=== PATIENT | male | born 1935 | race Caucasian/White ===

== ENCOUNTER 2017-06-26 20:03 | Inpatient (IN) | payer MEDICARE, MEDICAID ==
[~2017-06-26] VITALS: Ht 160 cm; Wt 105.7 kg
[~2017-06-26 20:03] MED LIST: AMLO5TAB2 PO; ENOX40DI9 SQ; LISI-603 PO
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
[2017-06-26] MEDS ORDERED: HALO2TAB PO (20:20)
[2017-06-26] MEDS ORDERED: ASPI-605 PO (20:20)
[2017-06-26] MEDS ORDERED: MAGN400O6 PO (20:20)
[2017-06-26] MEDS ORDERED: CHOL500062 PO (20:20)
[2017-06-26] MEDS ORDERED: LEVO50TA8 PO (20:20)
[2017-06-26] MEDS ORDERED: DOCU100C36 PO (20:20)
[2017-06-26] MEDS ORDERED: ACET-2154 PO (20:20)
[2017-06-26] MEDS ORDERED: FURO40TA5 PO (20:20)
[2017-06-26] MEDS ORDERED: CLON0.1T PO (20:20)
[2017-06-26] MEDS ORDERED: ATOR10TA PO (20:20)
[2017-06-26] MEDS ORDERED: LOSA50TA21 PO (20:20)
[2017-06-26] MEDS ORDERED: RISP1TAB27 PO (20:20)
[2017-06-26] MEDS ORDERED: MAG30ORA PO (20:20)
[2017-06-26 20:32] LABS: BASOPHILS # (AUTO) 0.1 K/uL (0.0-8.0); BASOPHILS % (AUTO) 0.8 % (0.0-2.0); EOSINOPHILS # (AUTO) 0.2 K/uL (0.0-0.7); EOSINOPHILS % (AUTO) 1.9 % (0.0-7.0); HEMATOCRIT 43.5 % (40-50); HEMOGLOBIN 14.6 G/DL (14.0-18.0); LYMPHOCYTES % (AUTO) 22.2 % (20.5-51.5); MEAN CORPUSCULAR HEMOGLOBIN 32.2 UUG (27.0-31.0); MEAN CORPUSCULAR HGB CONC 34 g/dL (32.0-37.0); MEAN CORPUSCULAR VOLUME 96.2 FL (82.0-92.0); MONOCYTES # (AUTO) 0.9 K/UL (0.1-1.30); MONOCYTES % (AUTO) 9.7 % (0.0-11.0); NEUTROPHILS % (AUTO) 65.4 % (38.5-71.5); PLATELET COUNT (AUTO) 187 K/UL (150-450); RED BLOOD CELL COUNT(AUTO) 4.52 MIL/UL (4.7-6.1); WHITE BLOOD COUNT (AUTO) 9.2 K/UL (4.0-11.2)
[2017-06-26 20:34] LABS: CARBON DIOXIDE 26 mmol/L (21-32); CHLORIDE 106 mmol/L (98-107); CREATININE 1.3 mg/dL (0.6-1.3); GLUCOSE 99 mg/dL (74-106); POTASSIUM 3.7 mmol/L (3.5-5.1); UREA NITROGEN, BLOOD 13 mg/dL (7-18)
[2017-06-26 20:38] LABS: ETHANOL < 3 MG/DL (0-0)
[2017-06-26 20:40] LABS: ALANINE AMINOTRANSFERASE 15 U/L (16-63); ALKALINE PHOSPHATASE 108 U/L (50-136); ASPARTATE AMINOTRANSFERASE 17 U/L (15-37); BILIRUBIN,DIRECT 0.2 mg/dL (0.0-0.2); BILIRUBIN,TOTAL 0.6 mg/dL (0.2-1.0)
[2017-06-26 20:48] LABS: ACETAMINOPHEN < 2.0 ug/mL (10-30)
[2017-06-26 21:00] LABS: *BILIRUBIN,URIN NEGATIVE (NEGATIVE); *BLOOD, URINE NEGATIVE (NEGATIVE); *CLARITY,URINE CLEAR (CLEAR); *COLOR,URINE YELLOW (YELLOW); *KETONES,URINE NEGATIVE (NEGATIVE); *PROTEIN,URINE NEGATIVE (NEGATIVE); LEUKOCYTE ESTERASE ,URINE NEGATIVE (NEGATIVE); NITRITE, URINE NEGATIVE (NEGATIVE); PH,URINE 6.5 (5.0-8.0); UGLUCOSE NEGATIVE (NEGATIVE)
[2017-06-26 21:01] LABS: BACTERIA,URINE NONE SEEN /HPF (NONE SEEN); RBC,URINE 0-3 /HPF (0-3); SQUAMOUS EPITHELIAL CELL,UR NONE SEEN /HPF (NONE SEEN); WBC,URINE 0-3 /HPF (0-3)
[2017-06-26 21:02] LABS: *AMPHETAMINE, URINE NEGATIVE (NEGATIVE); *BARBITURATE, URINE NEGATIVE (NEGATIVE); *CANNABINOID, URINE NEGATIVE (NEGATIVE); *COCCAINE, URINE NEGATIVE (NEGATIVE); *OPIATE, URINE NEGATIVE (NEGATIVE); *PHENCYCLIDINE SCREEN,URINE NEGATIVE (NEGATIVE)
--- NOTE | 2017-06-26 21:33 | NUR ---
Pt. admitted to GPS, under care of Dr. Townsend Belongs List completed
[2017-06-26] MEDS ORDERED: LORAZEPAM 0.5 MG TABLET PO PRN (22:15)
[2017-06-26] MEDS ORDERED: ACETAMINOPHEN 325 MG TABLET PO PRN (22:15)
[2017-06-26] MEDS ORDERED: MAG HYDROX/AL HYDROX/SIMETH 30 ML LIQUID UDC PO PRN (22:15)
[2017-06-26] MEDS ORDERED: MAGNESIUM HYDROXIDE 30 ML LIQUID UDC PO PRN (22:15)
[2017-06-26] MEDS ORDERED: ZOLPIDEM 5 MG TABLET PO PRN (22:15)
[2017-06-26] MEDS ORDERED: ZOLPIDEM 5 MG TABLET ONE (22:59)
[2017-06-26 23:49] VITALS: BP 160/88
--- NOTE | 2017-06-27 00:19 | NUR ---
PATIENT TRANSFERRED FROM ER @ 2240 VIA GURNEY. PATIENT ALERT/ORIENTED X1-2 CONFUSION NOTED, DISORGANIZED. PATIENT IS EASILY IRRITABLE, EASILY AGITATED. PATIENT IS UNPREDICTABLE. POOR IMPULSE CONTROL, POOR SAFETY AWARENESS, POOR JUDGEMENT. PATIENT SHOWERED WITH STANDBY ASSIST, UNSTEADY GAIT. PATIENT UNCOOPERATIVE WITH ADMISSION PROCESS. PATIENT ORIENTED TO ROOM AND BATHROOM, WILL CONITNUE TO REDIRECT. NO CONTRABAND NOTED. BED IN LOWEST POSITION, BED LOCKED, AND BED ALARM ON WHILE IN BED. PATIENT'S RIGHTS HAND BOOK AND ADVISEMENT AT BED SIDE. PATIENT DENIES PAIN AT THIS TIME,WILL CONTINUE TO MONITOR. NO AGGRESSIVE OR COMBATIVE BEHAVIOR NOTED WILL CONTINUE TO MONITOR.
[2017-06-27] MEDS ORDERED: METOPROLOL TARTRATE 25 MG TABLET PO ONE ×2 (00:30→00:45)
[2017-06-27] MEDS ORDERED: METOPROLOL TARTRATE 50 MG TABLET ONE ×2 (01:15→01:19)
[2017-06-27 07:30] VITALS: BP 126/72
[2017-06-27] MEDS: HALOPERIDOL LACTATE 10 MG/5 ML ORAL SOLUTION UDC PO SCH ×2 (09:00→17:00)
[2017-06-27] MEDS: BENZTROPINE MESYLATE 0.5 MG TABLET PO SCH ×2 (09:00→17:00)
[2017-06-27] MEDS ORDERED: LEVOTHYROXINE SODIUM 50 MCG TABLET PO SCH (10:15)
[2017-06-27] MEDS: ASPIRIN EC 81 MG TABLET.DR PO SCH (10:15)
[2017-06-27] MEDS ORDERED: CLONIDINE HCL 0.1 MG TABLET PO PRN (10:15)
[2017-06-27] MEDS: FUROSEMIDE 40 MG TABLET PO SCH (10:15)
[2017-06-27] MEDS ORDERED: AMLODIPINE 5 MG TABLET PO SCH (10:15)
[2017-06-27] MEDS: LOSARTAN POTASSIUM 50 MG TABLET PO SCH (10:15)
[2017-06-27] MEDS: AMLODIPINE 10 MG TABLET PO SCH (10:25)
[2017-06-27] MEDS: LEVOTHYROXINE SODIUM 75 MCG TABLET PO SCH (10:29)
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
[2017-06-27] MEDS: CHOLECALCIFEROL 1,000 UNIT TABLET PO SCH (12:45)
[2017-06-27 16:44] VITALS: BP 159/99
[2017-06-27] MEDS: DOCUSATE SODIUM 100 MG CAPSULE PO SCH (17:00)
[2017-06-27 20:16] VITALS: BP 144/95
--- NOTE | 2017-06-27 20:34 | NUR ---
PATIENT RECEIVED IN ROOM, AWAKE. PATIENT EASILY IRRITABLE, AGITATED. PATIENT REMAINS IN ROOM, AND OCCASIONALLY WALKS OUT TO THE STATION, THEN CONTINUES TO ROOM. PATIENT CONTINUES TO REFUSE MEDICATION EXPLAINED THE IMPORTANCE OF TAKING MEDICATION, CONTINUES TO REFUSE. PATIENT REMAINS CONFUSED, WILL CONTINUE TO REDIRECT. PATIENT DENIES PAIN AT THIS TIME, WILL CONTINUE TO MONITOR. NO AGGRESSIVE OR COMBATIVE BEHAVIOR NOTED WILL CONTINUE TO MONITOR.
[2017-06-27] MEDS: ATORVASTATIN 10 MG TABLET PO SCH (21:00)
[2017-06-28] MEDS: LEVOTHYROXINE SODIUM 75 MCG TABLET PO SCH (06:17)
--- NOTE | 2017-06-28 06:19 | NUR ---
PATIENT REFUSED AM MEDICATION, CONTINUE TO EDUCATE THE IMPORTANCE OF TAKING MEDICATION, CONTINUES TO REFUSE.
[2017-06-28 07:30] VITALS: BP 138/93
[2017-06-28] MEDS: HALOPERIDOL LACTATE 10 MG/5 ML ORAL SOLUTION UDC PO SCH ×3 (09:52→17:41)
[2017-06-28] MEDS: DOCUSATE SODIUM 100 MG CAPSULE PO SCH ×3 (09:52→17:41)
[2017-06-28] MEDS: AMLODIPINE 10 MG TABLET PO SCH (09:53)
[2017-06-28] MEDS: ASPIRIN EC 81 MG TABLET.DR PO SCH (09:53)
[2017-06-28] MEDS: CHOLECALCIFEROL 1,000 UNIT TABLET PO SCH (09:53)
[2017-06-28] MEDS: FUROSEMIDE 40 MG TABLET PO SCH (09:53)
[2017-06-28] MEDS: BENZTROPINE MESYLATE 0.5 MG TABLET PO SCH ×3 (09:53→17:41)
[2017-06-28] MEDS: LOSARTAN POTASSIUM 50 MG TABLET PO SCH (09:53)
[2017-06-28 15:47] VITALS: BP 103/62
[2017-06-28 19:30] VITALS: BP 120/64
[2017-06-28] MEDS: ATORVASTATIN 10 MG TABLET PO SCH (21:00)
--- NOTE | 2017-06-29 00:54 | NUR ---
Patient refused Lipitor at [facility], verbal redirection given x2; however, ineffective. He stated, "I don't want to pay for medication, I know you want to charge me for it." patient noted easily irritable. we will continue to monitor.
[2017-06-29] MEDS: LEVOTHYROXINE SODIUM 75 MCG TABLET PO SCH (07:00)
[2017-06-29 07:30] VITALS: BP 117/81
--- NOTE | 2017-06-29 07:35 | NUR ---
Patient refused Synthroid [facility]. verbal redirection given, however ineffective.
[2017-06-29] MEDS: AMLODIPINE 10 MG TABLET PO SCH (09:00)
[2017-06-29] MEDS: ASPIRIN EC 81 MG TABLET.DR PO SCH (09:00)
[2017-06-29] MEDS: HALOPERIDOL LACTATE 10 MG/5 ML ORAL SOLUTION UDC PO SCH ×2 (09:00→17:00)
[2017-06-29] MEDS: BENZTROPINE MESYLATE 0.5 MG TABLET PO SCH ×2 (09:00→17:00)
[2017-06-29] MEDS: FUROSEMIDE 40 MG TABLET PO SCH (09:00)
[2017-06-29] MEDS: CHOLECALCIFEROL 1,000 UNIT TABLET PO SCH (09:00)
[2017-06-29] MEDS: LOSARTAN POTASSIUM 50 MG TABLET PO SCH (09:00)
[2017-06-29] MEDS: DOCUSATE SODIUM 100 MG CAPSULE PO SCH ×2 (09:00→17:00)
[2017-06-29 16:00] VITALS: BP 119/77
[2017-06-29 19:55] VITALS: BP 123/88
[2017-06-29] MEDS: ATORVASTATIN 10 MG TABLET PO SCH (20:33)
[2017-06-30] MEDS: LEVOTHYROXINE SODIUM 75 MCG TABLET PO SCH (07:00)
[2017-06-30 07:30] VITALS: BP 146/93
[2017-06-30] MEDS: ASPIRIN EC 81 MG TABLET.DR PO SCH (09:00)
[2017-06-30] MEDS: HALOPERIDOL LACTATE 10 MG/5 ML ORAL SOLUTION UDC PO SCH ×2 (09:00→17:00)
[2017-06-30] MEDS: BENZTROPINE MESYLATE 0.5 MG TABLET PO SCH ×2 (09:00→17:00)
[2017-06-30] MEDS: DOCUSATE SODIUM 100 MG CAPSULE PO SCH ×2 (09:00→17:00)
[2017-06-30] MEDS: AMLODIPINE 10 MG TABLET PO SCH (09:00)
[2017-06-30] MEDS: LOSARTAN POTASSIUM 50 MG TABLET PO SCH (09:00)
[2017-06-30] MEDS: CHOLECALCIFEROL 1,000 UNIT TABLET PO SCH (09:00)
[2017-06-30] MEDS: FUROSEMIDE 40 MG TABLET PO SCH (09:00)
--- NOTE | 2017-06-30 14:12 | NUR ---
GPS/RN- AND JANN SCHROEDER HEARING SCHEDULED FOR 07/01/17 @ 1530PM. Addendum: 06/30/17 at 1413 by VALENTIN JOHNSON RN DR YAÑEZ NOTIFIED
[2017-06-30 16:00] VITALS: BP 121/96
[2017-06-30] MEDS: ATORVASTATIN 10 MG TABLET PO SCH (21:00)
[2017-06-30 21:25] VITALS: BP 117/68
--- NOTE | 2017-06-30 22:16 | NUR ---
Patient refused to take Lipitor at [facility]. verbal redirection given x2; however, He still refused.
[2017-07-01] MEDS: LEVOTHYROXINE SODIUM 75 MCG TABLET PO SCH (06:50)
[2017-07-01 07:30] VITALS: BP 119/86
[2017-07-01] MEDS: HALOPERIDOL LACTATE 10 MG/5 ML ORAL SOLUTION UDC PO SCH ×3 (09:00→21:00)
[2017-07-01] MEDS: LOSARTAN POTASSIUM 50 MG TABLET PO SCH (09:00)
[2017-07-01] MEDS: ASPIRIN EC 81 MG TABLET.DR PO SCH (09:00)
[2017-07-01] MEDS: FUROSEMIDE 40 MG TABLET PO SCH (09:00)
[2017-07-01] MEDS: AMLODIPINE 10 MG TABLET PO SCH (09:00)
[2017-07-01] MEDS: DOCUSATE SODIUM 100 MG CAPSULE PO SCH ×2 (09:00→17:00)
[2017-07-01] MEDS: BENZTROPINE MESYLATE 0.5 MG TABLET PO SCH ×2 (09:00→17:00)
[2017-07-01] MEDS: CHOLECALCIFEROL 1,000 UNIT TABLET PO SCH (09:00)
[2017-07-01 15:00] VITALS: BP 149/93
[2017-07-01] MEDS: diphenhydrAMINE 50 MG/1 ML VIAL IM PRN ×2 (17:55→22:00)
[2017-07-01] MEDS: HALOPERIDOL LACTATE 5 MG/1 ML VIAL IM PRN ×2 (17:55→22:00)
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
[2017-07-01 20:47] VITALS: BP 137/77
[2017-07-01] MEDS: ATORVASTATIN 10 MG TABLET PO SCH (21:00)
--- NOTE | 2017-07-01 22:16 | NUR ---
PATIENT REFUSED HIS HALDOL 2MG PO AT [facility]. MULTIPLE REDIRECTION WERE GIVEN; HOWEVER PATIENT REFUSED. HE STATE, "NO, I TOLD YOU I DON'T TAKE MEDICATION. PT IS REISE. HALDOL 2.5MG IM PRN FOR REFUSAL OF HALDOL PO WAS GIVEN IN HIS RIGHT GM. MEDICATION WAS GIVEN WITH PATIENT CONSENT. HE STATE, "WELL, JUST GIVE ME WHAT YOU NEED TO GIVE ME." PATIENT WAS CALM AND COOPERATIVE. WE WILL CONTINUE TO ENCOURAGE MEDICATION COMPLIANT.
[2017-07-02] MEDS: diphenhydrAMINE 50 MG/1 ML VIAL IM PRN (00:14)
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
[2017-07-02] MEDS: LEVOTHYROXINE SODIUM 75 MCG TABLET PO SCH (07:00)
[2017-07-02 07:30] VITALS: BP 162/100
[2017-07-02] MEDS: BENZTROPINE MESYLATE 0.5 MG TABLET PO SCH ×2 (08:34→17:00)
[2017-07-02] MEDS: HALOPERIDOL LACTATE 10 MG/5 ML ORAL SOLUTION UDC PO SCH ×5 (08:34→21:25)
[2017-07-02] MEDS: LOSARTAN POTASSIUM 50 MG TABLET PO SCH (08:36)
[2017-07-02] MEDS: ASPIRIN EC 81 MG TABLET.DR PO SCH (08:45)
[2017-07-02] MEDS: DOCUSATE SODIUM 100 MG CAPSULE PO SCH ×2 (08:45→18:10)
[2017-07-02] MEDS: FUROSEMIDE 40 MG TABLET PO SCH (08:45)
[2017-07-02] MEDS: CHOLECALCIFEROL 1,000 UNIT TABLET PO SCH (08:46)
[2017-07-02] MEDS: AMLODIPINE 10 MG TABLET PO SCH (08:46)
[2017-07-02 16:42] VITALS: BP 115/63
[2017-07-02 20:52] VITALS: BP 139/74
[2017-07-02] MEDS: ATORVASTATIN 10 MG TABLET PO SCH (21:28)
[2017-07-03] MEDS: LEVOTHYROXINE SODIUM 75 MCG TABLET PO SCH (07:09)
[2017-07-03 07:30] VITALS: BP 144/99
[2017-07-03] MEDS: FUROSEMIDE 40 MG TABLET PO SCH (09:00)
[2017-07-03] MEDS: CHOLECALCIFEROL 1,000 UNIT TABLET PO SCH (09:00)
[2017-07-03] MEDS: BENZTROPINE MESYLATE 0.5 MG TABLET PO SCH ×2 (09:00→17:05)
[2017-07-03] MEDS: DOCUSATE SODIUM 100 MG CAPSULE PO SCH ×2 (09:00→17:04)
[2017-07-03] MEDS: ASPIRIN EC 81 MG TABLET.DR PO SCH (09:00)
[2017-07-03] MEDS: AMLODIPINE 10 MG TABLET PO SCH (09:35)
[2017-07-03] MEDS: LOSARTAN POTASSIUM 50 MG TABLET PO SCH (09:35)
[2017-07-03] MEDS: HALOPERIDOL LACTATE 10 MG/5 ML ORAL SOLUTION UDC PO SCH ×4 (09:36→20:26)
[2017-07-03 16:00] VITALS: BP 141/77
[2017-07-03 20:08] VITALS: BP 128/74
[2017-07-03] MEDS: ATORVASTATIN 10 MG TABLET PO SCH (20:26)
--- NOTE | 2017-07-03 22:36 | NUR ---
pt received in his room laying in bed awake, mainly pashto speaking, very little Bolivian, minimal interaction with peers noted, took PO meds as ordered, will continue to monitor closely.
[2017-07-04] MEDS: LEVOTHYROXINE SODIUM 75 MCG TABLET PO SCH (06:38)
[2017-07-04 07:30] VITALS: BP 127/79
[2017-07-04] MEDS: DOCUSATE SODIUM 100 MG CAPSULE PO SCH ×2 (08:28→16:40)
[2017-07-04] MEDS: ASPIRIN EC 81 MG TABLET.DR PO SCH (08:29)
[2017-07-04] MEDS: LOSARTAN POTASSIUM 50 MG TABLET PO SCH (08:29)
[2017-07-04] MEDS: HALOPERIDOL LACTATE 10 MG/5 ML ORAL SOLUTION UDC PO SCH ×3 (08:29→16:40)
[2017-07-04] MEDS: FUROSEMIDE 40 MG TABLET PO SCH (08:32)
[2017-07-04] MEDS: AMLODIPINE 10 MG TABLET PO SCH (08:32)
[2017-07-04] MEDS: CHOLECALCIFEROL 1,000 UNIT TABLET PO SCH (08:33)
[2017-07-04] MEDS: BENZTROPINE MESYLATE 0.5 MG TABLET PO SCH (08:33)
[2017-07-04 15:52] VITALS: BP 146/91
--- NOTE | 2017-07-04 16:18 | NUR ---
Patient visible in dayroom watching tv with peers, flat/blunted affect, calm and guarded, no interaction with peers and staff, northern irish speaking, ate 100% breakfast and lunch. Patient still needs prompting when taking medications. No aggressive behavior noted. Will continue to monitor for safety and behavioral changes.
[2017-07-04] MEDS: BENZTROPINE MESYLATE 1 MG TABLET PO SCH (16:40)
[2017-07-04] MEDS ORDERED: BENZTROPINE MESYLATE 0.5 MG TABLET PO SCH (17:00)
[2017-07-04 20:58] VITALS: BP 148/77
[2017-07-04] MEDS: ATORVASTATIN 10 MG TABLET PO SCH (21:00)
[2017-07-05] MEDS: LEVOTHYROXINE SODIUM 75 MCG TABLET PO SCH (07:00)
--- NOTE | 2017-07-05 07:27 | NUR ---
Patient refused his Lipitor [facility] and Synthroid QAM.
[2017-07-05 07:30] VITALS: BP 138/87
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
[2017-07-05] MEDS: DOCUSATE SODIUM 100 MG CAPSULE PO SCH ×2 (09:00→16:40)
[2017-07-05] MEDS ORDERED: OLANZAPINE 10 MG VIAL IM ONE (09:00)
[2017-07-05] MEDS: ASPIRIN EC 81 MG TABLET.DR PO SCH (09:00)
[2017-07-05] MEDS: LOSARTAN POTASSIUM 50 MG TABLET PO SCH (09:00)
[2017-07-05] MEDS: HALOPERIDOL LACTATE 10 MG/5 ML ORAL SOLUTION UDC PO SCH ×3 (09:00→16:40)
[2017-07-05] MEDS: FUROSEMIDE 40 MG TABLET PO SCH (09:00)
[2017-07-05] MEDS: AMLODIPINE 10 MG TABLET PO SCH (09:00)
[2017-07-05] MEDS: BENZTROPINE MESYLATE 1 MG TABLET PO SCH ×2 (09:00→16:40)
[2017-07-05] MEDS: CHOLECALCIFEROL 1,000 UNIT TABLET PO SCH (09:00)
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
[2017-07-05 16:58] VITALS: BP 148/87
--- NOTE | 2017-07-05 18:15 | NUR ---
Patient took his pm meds with lots of prompting , no aggressive behavior noted.
[2017-07-05 20:00] VITALS: BP 151/92
[2017-07-05] MEDS: ATORVASTATIN 10 MG TABLET PO SCH (20:04)
--- NOTE | 2017-07-05 21:56 | NUR ---
pt received in his room awake, suprisingly took his HS medication without hesitation, will continue to monitor closely.
[2017-07-06 03:10] VITALS: BP 114/71
--- NOTE | 2017-07-06 03:19 | NUR ---
pt was found on the floor next to his bed, at 0300, after this life underwriter heard a loud sound, coming from the room. according to the patient, he became dizzy, when he tried to get up, to go to the bathroom. he was found sitting on his buttocks. he denies any pain, or injury. vital signs WNL. denies any dizziness, now. able to do full ROM, without any complaint of pain or discomfort. pt was assisted up in the gerichair, and taken to the nurses station, for close observation. [facility] medical group was called, and Devante Dos Santos NP, was notified. nursing lathing supervisor, Jaylin, was also notified. as of 319, pt Is asleep, in the chair, at the nurses station. no distress noted. will continue to monitor closely.
[2017-07-06] MEDS: LEVOTHYROXINE SODIUM 75 MCG TABLET PO SCH (06:16)
--- NOTE | 2017-07-06 06:58 | NUR ---
patient"s daughter, Bernarda, was notified via telephone, of earlier fall incident. pt remains asleep, in gerichair. slept 8 .0 hours, total. no distress noted.
[2017-07-06 08:00] VITALS: BP 97/62
[2017-07-06] MEDS: ASPIRIN EC 81 MG TABLET.DR PO SCH (08:17)
[2017-07-06] MEDS: AMLODIPINE 10 MG TABLET PO SCH (08:17)
[2017-07-06] MEDS: HALOPERIDOL LACTATE 10 MG/5 ML ORAL SOLUTION UDC PO SCH ×4 (08:17→20:25)
[2017-07-06] MEDS: CHOLECALCIFEROL 1,000 UNIT TABLET PO SCH (08:17)
[2017-07-06] MEDS: LOSARTAN POTASSIUM 50 MG TABLET PO SCH (08:18)
[2017-07-06] MEDS: DOCUSATE SODIUM 100 MG CAPSULE PO SCH ×2 (08:18→17:03)
[2017-07-06] MEDS: BENZTROPINE MESYLATE 1 MG TABLET PO SCH ×2 (08:19→17:03)
[2017-07-06] MEDS: FUROSEMIDE 40 MG TABLET PO SCH (08:21)
--- NOTE | 2017-07-06 12:42 | NUR ---
PT SEDATED, BUT AROUSABLE. BASIA HELD. AND CHARGE NURSE AWARE.
[2017-07-06 16:00] VITALS: BP 123/96
--- NOTE | 2017-07-06 17:01 | NUR ---
1700 BASIA HELD. PT CONTINUES TO BE SEDATED BUT AROUSABLE. DR YAÑEZ/CHARGE NURSE AWARE.
[2017-07-06 20:22] VITALS: BP 151/81
[2017-07-06] MEDS: ATORVASTATIN 10 MG TABLET PO SCH (20:24)
[2017-07-07] MEDS: LEVOTHYROXINE SODIUM 75 MCG TABLET PO SCH (06:29)
[2017-07-07 07:30] VITALS: BP 120/75
[2017-07-07] MEDS: DOCUSATE SODIUM 100 MG CAPSULE PO SCH ×2 (08:31→17:33)
[2017-07-07] MEDS: AMLODIPINE 10 MG TABLET PO SCH (08:32)
[2017-07-07] MEDS: ASPIRIN EC 81 MG TABLET.DR PO SCH (08:32)
[2017-07-07] MEDS: LOSARTAN POTASSIUM 50 MG TABLET PO SCH (08:32)
[2017-07-07] MEDS: CHOLECALCIFEROL 1,000 UNIT TABLET PO SCH (08:32)
[2017-07-07] MEDS: FUROSEMIDE 40 MG TABLET PO SCH (08:32)
[2017-07-07] MEDS: BENZTROPINE MESYLATE 1 MG TABLET PO SCH ×2 (08:32→17:33)
[2017-07-07] MEDS: HALOPERIDOL LACTATE 10 MG/5 ML ORAL SOLUTION UDC PO SCH ×4 (08:33→20:41)
[2017-07-07] MEDS: HALOPERIDOL LACTATE 5 MG/1 ML VIAL IM PRN (13:39)
[2017-07-07 15:00] VITALS: BP 107/63
[2017-07-07] MEDS ORDERED: HALOPERIDOL DECANOATE 50 MG/1 ML AMPUL IM ONE (17:00)
[2017-07-07 20:38] VITALS: BP 161/89
[2017-07-07] MEDS: ATORVASTATIN 10 MG TABLET PO SCH (20:41)
[2017-07-08] MEDS: LEVOTHYROXINE SODIUM 75 MCG TABLET PO SCH (06:11)
[2017-07-08 07:30] VITALS: BP 131/70
[2017-07-08] MEDS: CHOLECALCIFEROL 1,000 UNIT TABLET PO SCH (08:33)
[2017-07-08] MEDS: DOCUSATE SODIUM 100 MG CAPSULE PO SCH ×2 (08:33→17:24)
[2017-07-08] MEDS: BENZTROPINE MESYLATE 1 MG TABLET PO SCH ×2 (08:33→17:24)
[2017-07-08] MEDS: LOSARTAN POTASSIUM 50 MG TABLET PO SCH (08:33)
[2017-07-08] MEDS: ASPIRIN EC 81 MG TABLET.DR PO SCH (08:34)
[2017-07-08] MEDS: AMLODIPINE 10 MG TABLET PO SCH (08:34)
[2017-07-08] MEDS: HALOPERIDOL LACTATE 10 MG/5 ML ORAL SOLUTION UDC PO SCH ×4 (08:34→20:13)
[2017-07-08] MEDS: FUROSEMIDE 40 MG TABLET PO SCH (08:34)
[2017-07-08 15:00] VITALS: BP 131/72
[2017-07-08] MEDS: ATORVASTATIN 10 MG TABLET PO SCH (20:13)
[2017-07-08 20:22] VITALS: BP 114/63
[2017-07-09] MEDS: LEVOTHYROXINE SODIUM 75 MCG TABLET PO SCH (06:23)
[2017-07-09 07:30] VITALS: BP 106/59
[2017-07-09] MEDS: DOCUSATE SODIUM 100 MG CAPSULE PO SCH ×2 (08:37→16:58)
[2017-07-09] MEDS: LOSARTAN POTASSIUM 50 MG TABLET PO SCH (08:38)
[2017-07-09] MEDS: ASPIRIN EC 81 MG TABLET.DR PO SCH (08:39)
[2017-07-09] MEDS: CHOLECALCIFEROL 1,000 UNIT TABLET PO SCH (08:39)
[2017-07-09] MEDS: AMLODIPINE 10 MG TABLET PO SCH (08:40)
[2017-07-09] MEDS: FUROSEMIDE 40 MG TABLET PO SCH (08:40)
[2017-07-09] MEDS: BENZTROPINE MESYLATE 1 MG TABLET PO SCH ×2 (08:41→16:58)
[2017-07-09] MEDS: HALOPERIDOL LACTATE 10 MG/5 ML ORAL SOLUTION UDC PO SCH ×4 (08:41→20:04)
[2017-07-09] MEDS: HALOPERIDOL LACTATE 5 MG/1 ML VIAL IM PRN (12:54)
[2017-07-09 15:55] VITALS: BP 108/63
[2017-07-09] MEDS: ATORVASTATIN 10 MG TABLET PO SCH (20:04)
[2017-07-09 20:21] VITALS: BP 125/61
[2017-07-10] MEDS: LEVOTHYROXINE SODIUM 75 MCG TABLET PO SCH (06:21)
[2017-07-10 07:30] VITALS: BP 117/67
[2017-07-10] MEDS: BENZTROPINE MESYLATE 1 MG TABLET PO SCH ×2 (08:36→17:12)
[2017-07-10] MEDS: AMLODIPINE 10 MG TABLET PO SCH (08:37)
[2017-07-10] MEDS: LOSARTAN POTASSIUM 50 MG TABLET PO SCH (08:37)
[2017-07-10] MEDS: CHOLECALCIFEROL 1,000 UNIT TABLET PO SCH (08:37)
[2017-07-10] MEDS: FUROSEMIDE 40 MG TABLET PO SCH (08:37)
[2017-07-10] MEDS: DOCUSATE SODIUM 100 MG CAPSULE PO SCH ×2 (08:37→17:12)
[2017-07-10] MEDS: HALOPERIDOL LACTATE 10 MG/5 ML ORAL SOLUTION UDC PO SCH ×4 (08:37→20:36)
[2017-07-10] MEDS: ASPIRIN EC 81 MG TABLET.DR PO SCH (08:37)
[2017-07-10 15:26] VITALS: BP 91/51
[2017-07-10 20:14] VITALS: BP 106/62
[2017-07-10] MEDS: ATORVASTATIN 10 MG TABLET PO SCH (20:34)
[2017-07-11] MEDS: LEVOTHYROXINE SODIUM 75 MCG TABLET PO SCH (06:30)
[2017-07-11 07:30] VITALS: BP_SYST 90; BP_SYST 96; BP_DIAS 46; BP_DIAS 57
[2017-07-11] MEDS: ASPIRIN EC 81 MG TABLET.DR PO SCH (08:20)
[2017-07-11] MEDS: LOSARTAN POTASSIUM 50 MG TABLET PO SCH (08:20)
[2017-07-11] MEDS: CHOLECALCIFEROL 1,000 UNIT TABLET PO SCH (08:21)
[2017-07-11] MEDS: FUROSEMIDE 40 MG TABLET PO SCH (08:21)
[2017-07-11] MEDS: DOCUSATE SODIUM 100 MG CAPSULE PO SCH ×2 (08:21→17:08)
[2017-07-11] MEDS: BENZTROPINE MESYLATE 1 MG TABLET PO SCH ×2 (08:22→17:07)
[2017-07-11] MEDS: HALOPERIDOL LACTATE 10 MG/5 ML ORAL SOLUTION UDC PO SCH ×4 (08:22→20:18)
[2017-07-11] MEDS: AMLODIPINE 10 MG TABLET PO SCH (08:22)
[2017-07-11 15:33] VITALS: BP 113/74
[2017-07-11 20:17] VITALS: BP 111/69
[2017-07-11] MEDS: ATORVASTATIN 10 MG TABLET PO SCH (20:18)
[2017-07-12] MEDS: LEVOTHYROXINE SODIUM 75 MCG TABLET PO SCH (06:08)
[2017-07-12 07:30] VITALS: BP 95/50
[2017-07-12] MEDS: DOCUSATE SODIUM 100 MG CAPSULE PO SCH ×3 (08:43→17:03)
[2017-07-12] MEDS: BENZTROPINE MESYLATE 1 MG TABLET PO SCH ×3 (08:44→17:03)
[2017-07-12] MEDS: LOSARTAN POTASSIUM 50 MG TABLET PO SCH (08:44)
[2017-07-12] MEDS: AMLODIPINE 10 MG TABLET PO SCH (08:45)
[2017-07-12] MEDS: HALOPERIDOL LACTATE 5 MG/1 ML VIAL IM PRN (08:55)
[2017-07-12] MEDS: HALOPERIDOL LACTATE 10 MG/5 ML ORAL SOLUTION UDC PO SCH ×4 (09:00→20:16)
[2017-07-12] MEDS: FUROSEMIDE 40 MG TABLET PO SCH (09:00)
[2017-07-12] MEDS: CHOLECALCIFEROL 1,000 UNIT TABLET PO SCH (09:00)
[2017-07-12] MEDS: ASPIRIN EC 81 MG TABLET.DR PO SCH (09:00)
--- NOTE | 2017-07-12 09:32 | NUR ---
DC Note: Patient will be discharged to [facility] [[address], [place] [address]; ] via private transportation at 4:00 pm. Patient will be picked up by [facility] transportation. Spoke with Bridget at the facility who stated they would accept the patient today. Spoke with patient's daughter, Bernarda [phone] who is aware and agreeable with discharge plans. Patient will follow-up with (Psychiatrist) and (Revenue Field Auditor) at the facility.
[2017-07-12 16:03] VITALS: BP 120/65
[2017-07-12 20:09] VITALS: BP 116/63
[2017-07-12] MEDS: ATORVASTATIN 10 MG TABLET PO SCH (20:15)
--- NOTE | 2017-07-12 22:01 | NUR ---
GPS: Pt.discharged to [facility] as ordered by psychiatrist at this time. Left in stable condition with all his personal belongings. Left via w/c with airport shuttle driver named "David". No skin problems noted upon discharge. V/S stable. Report given to accepting facility earlier.
== END 2017-07-12 22:08 | DRG 885 ==
LOC: ER 20:33 → GPS 21:59
PROVIDERS: ADMIT Psychiatry & Neurology Psychiatry; ATTEND Internal Medicine
DX: F20.0 Paranoid schizophrenia (principal); C84.A0 Cutaneous T-cell lymphoma, unspecified, unspecified site; F03.91 Unspecified dementia, unspecified severity, with behavioral disturbance; Z68.41 Body mass index [BMI] 40.0-44.9, adult; E88.09 Other disorders of plasma-protein metabolism, not elsewhere classified; Z91.14 Patient's other noncompliance with medication regimen; E66.01 Morbid (severe) obesity due to excess calories; Z71.3 Dietary counseling and surveillance; Z79.899 Other long term (current) drug therapy; K29.70 Gastritis, unspecified, without bleeding; Z91.19 Patient's noncompliance with other medical treatment and regimen; Z86.73 Personal history of transient ischemic attack (TIA), and cerebral infarction without residual deficits; Z79.82 Long term (current) use of aspirin; Z96.651 Presence of right artificial knee joint; E78.5 Hyperlipidemia, unspecified; E03.9 Hypothyroidism, unspecified; F42.9 Obsessive-compulsive disorder, unspecified; I10 Essential (primary) hypertension; M19.90 Unspecified osteoarthritis, unspecified site; M62.81 Muscle weakness (generalized); R45.6 Violent behavior
CPT/HCPCS: 36415; 80307; 85025; 93005; 97161; A4663; G0480; G0480-TC; J1200; J1630; J1631; J2358